=== PATIENT | male | born 1980 | race African-American/Black ===

== ENCOUNTER 2020-08-17 22:11 | Emergency (ER) | payer BC ==
[~2020-08-17] VITALS: Ht 180.3 cm; Wt 72.7 kg
[2020-08-17 22:20] VITALS: BP 125/73
--- NOTE | 2020-08-17 23:06 | RAD ---
EXAM: FOOT RIGHT 3V 08/17/2020 10:13 PM CLINICAL INDICATION:Right great toe pain after injury COMPARISON:None TECHNIQUE:3 views of the right foot FINDINGS:There is an oblique, nondisplaced fracture of the base of the great toe distal phalanx, extending to the articular surface. No other fracture or marrow edema. Mild soft tissue swelling of the great toe. IMPRESSION:Nondisplaced intra-articular fracture of the great toe distal phalanx. Electronically signed by: Indy Allen MD (08/17/2020 11:03 PM) [id number]
--- NOTE | 2020-08-17 23:22 | PHYS DOC ---
Past Medical History Past Medical History: No Pertinent History Past Surgical History: No Surgical History Smoking Status: Never Smoker Alcohol Use: Occasionally General Adult EDM: Chief Complaint: TOE PROBLEM HPI: HPI: Patient is a 40 year old AA male who presents emergency department with complaints of right great toe pain, bruising, and swelling that began today. Patient denies any known injury. He is not sure if he possibly dropped something on his toe or maybe stubbed his toe while working today. He denies any numbness, tingling, weakness, or difficulty with ambulation. He currently rates his pain a 10 out of 10 on the pain scale, he denies radiation of the pain, he denies any alleviating factors. The patient states he has not tried any Tylenol or ibuprofen prior to arrival. Review of Systems: Review of Systems: Complete ROS is negative unless otherwise stated in the HPI. Heart Score: Risk Factors: Risk Factors: DM, Current or recent (<one month) smoker, HTN, HLP, family history of CAD, obesity. Risk Scores: Score 0 - 3: 2.5% MACE over next 6 weeks - Discharge Home Score 4 - 6: 20.3% MACE over next 6 weeks - Admit for Clinical Observation Score 7 - 10: 72.7% MACE over next 6 weeks - Early Invasive Strategies Physical Exam: PE: Constitutional: Well developed, well nourished, no acute distress, non-toxic appearance. [] HENT: Normocephalic, atraumatic, bilateral external ears normal, nose normal. [] Eyes: PERRLA, EOMI, conjunctiva normal, no discharge. [] Neck: Normal range of motion, no stridor. [] Cardiovascular:Heart rate regular rhythm Lungs & Thorax: Respirations even and unlabored, no retractions, no respiratory distress Skin: Warm, dry, no erythema, no rash. [] Extremities: Right great toe: Tenderness to palpation over the DIP at the lateral aspect with bruising and swelling over the DIP, no cyanosis, ROM intact Neurologic: Alert and oriented X 3, no focal deficits noted. [] Psychologic: Affect normal, judgement normal, mood normal. [] Current Patient Data: Vital Signs: Vital Signs Date Time Temp Pulse Resp B/P (MAP) Pulse Ox O2 Delivery O2 Flow Rate FiO2 20 22:20 98.2 83 14 125/73 (90) 99 Room Air 98.2 EKG: EKG: [] Radiology/Procedures: Radiology/Procedures: PROCEDURE: FOOT RIGHT 3V EXAM: FOOT RIGHT 3V 08/17/2020 10:13 PM CLINICAL INDICATION:Right great toe pain after injury COMPARISON:None TECHNIQUE:3 views of the right foot FINDINGS:There is an oblique, nondisplaced fracture of the base of the great toe distal phalanx, extending to the articular surface. No other fracture or marrow edema. Mild soft tissue swelling of the great toe. IMPRESSION:Nondisplaced intra-articular fracture of the great toe distal phalanx.[] Course & Med Decision Making: Course & Med Decision Making Pertinent Labs and Imaging studies reviewed. (See chart for details) [] Dragon Disclaimer: Dragon Disclaimer: This electronic medical record was generated, in whole or in part, using a voice recognition dictation system. Departure Departure Impression: Primary Impression: Fracture of great toe of right foot with routine healing Qualified Codes: S92.424D - Nondisplaced fracture of distal phalanx of right great toe, subsequent encounter for fracture with routine healing Disposition: 01 HOME, SELF-CARE Condition: STABLE Referrals: NO PCP (PCP) YVONNE VAZQUEZ II, MD Patient Instructions: Demetra Taping of Toes, Toe Fracture-Brief Additional Instructions: You can take Tylenol as needed for pain. Recommend demetra taping your toes and wearing the postop shoe. Activity as tolerated. Follow-up with Dr. Vazquez in 1 to 2 days, return to the ER if symptoms worsen. Justicifation of Admission Dx: Justifications for Admission: Justification of Admission Dx: N/A J[facility]ON ELIZABETH [employer]ER Aug 17, 2020 23:22
== END 2020-08-17 23:25 | disposition home or self-care (01) ==
LOC: ER 22:11
DX: S92.424D Nondisplaced fracture of distal phalanx of right great toe, subsequent encounter for fracture with routine healing (principal); X58.XXXD Exposure to other specified factors, subsequent encounter
CPT/HCPCS: 73630; 99283

== ENCOUNTER 2022-02-19 07:21 | Emergency (ER) | payer BC ==
[~2022-02-19] VITALS: Ht 180.3 cm; Wt 72.9 kg
[2022-02-19] MEDS ORDERED: IV NORMAL SALINE 1000ML BAG 1,000 ML IV SCH (07:45)
[2022-02-19] MEDS ORDERED: KETOROLAC 30 MG/ML VIAL. IVP ONE (07:45)
--- NOTE | 2022-02-19 07:46 | PHYS DOC ---
Past Medical History Past Medical History: No Pertinent History Past Surgical History: No Surgical History Smoking Status: Never Smoker Alcohol Use: Occasionally General Adult EDM: Chief Complaint: FLANK PAIN HPI: HPI: Patient is a 41 year old comes in with right flank pain that started 10 PM last night. Patient states that the pain radiates all the way down to his right testicle. Denies any dysuria denies any hematuria. States that he has not had pain like this before in the past. Patient does not have any significant medical history does not take any medications. Patient reports nausea no vomiting. Review of Systems: Review of Systems: Constitutional: Denies fever or chills. Eyes: Denies change in visual acuity. HENT: Denies nasal congestion or sore throat. Respiratory: Denies cough or shortness of breath. Cardiovascular: Denies chest pain or edema. GI: Denies abdominal pain, nausea, vomiting, bloody stools or diarrhea. : Right flank pain denies dysuria. Musculoskeletal: Denies back pain or joint pain. Integument: Denies rash. Neurologic: Denies headache, focal weakness or sensory changes. Endocrine: Denies polyuria or polydipsia. Lymphatic: Denies swollen glands. Psychiatric: Denies depression or anxiety. Heart Score: C/O Chest Pain: No Risk Factors: Risk Factors: DM, Current or recent (<one month) smoker, HTN, HLP, family history of CAD, obesity. Risk Scores: Score 0 - 3: 2.5% MACE over next 6 weeks - Discharge Home Score 4 - 6: 20.3% MACE over next 6 weeks - Admit for Clinical Observation Score 7 - 10: 72.7% MACE over next 6 weeks - Early Invasive Strategies Current Medications: Current Medications Medications (Trade) Dose Ordered Sig/Michelle Start Time Stop Time Status Last Admin Dose Admin Ketorolac Tromethamine (Toradol 30mg Vial) 15 mg 1X ONCE 02/19/22 07:45 02/19/22 07:46 Sodium Chloride 1,000 ml @ 1,000 mls/hr Q1H 02/19/22 07:45 02/19/22 08:44 Allergies: Allergies: Allergies Coded Allergies Type Severity Reaction Last Updated Verified No Known Drug Allergies 08/17/20 No Physical Exam: PE: Constitutional: Appears uncomfortable well developed, well nourished, no acute distress, non-toxic appearance. HENT: Normocephalic, atraumatic, bilateral external ears normal, oropharynx moist, no oral exudates, nose normal. Eyes: PERRLA, EOMI, conjunctiva normal, no discharge. Neck: Normal range of motion, no tenderness, supple, no stridor. Cardiovascular:Heart rate regular rhythm, no murmur Lungs & Thorax: Bilateral breath sounds clear to auscultation Abdomen: Bowel sounds normal, soft, no tenderness, no masses, no pulsatile masses. Skin: Warm, dry, no erythema, no rash. Back: Scoliosis with convexity towards the right., RIght CVA tenderness. Extremities: No tenderness, no cyanosis, no clubbing, ROM intact, no edema. Neurologic: Alert and oriented X 3, normal motor function, normal sensory function, no focal deficits noted. Psychologic: Affect normal, judgement normal, mood normal. Current Patient Data: Vital Signs: Vital Signs Date Time Temp Pulse Resp B/P (MAP) Pulse Ox O2 Delivery O2 Flow Rate FiO2 02/19/22 07:22 98.3 51 24 124/79 (94) 99 Room Air 98.3 EKG: EKG: [] Radiology/Procedures: Radiology/Procedures: [] Course & Med Decision Making: Course & Med Decision Making Pertinent Labs and Imaging studies reviewed. (See chart for details) Upon reevaluation patient is resting comfortably. Patient is sleeping Dragon Disclaimer: David Disclaimer: This electronic medical record was generated, in whole or in part, using a voice recognition dictation system. Departure Departure Referrals: NO PCP (PCP) DELTA LIRIANO DO Feb 19, 2022 07:46
[2022-02-19 08:30] LABS: BASO % 1 % (0-3); EOS # 0.1 x10^3/uL (0.0-0.7); EOS % 1 % (0-3); HEMATOCRIT 41.2 % (39.0-53.0); HEMOGLOBIN 13.5 g/dL (13.0-17.5); LYMPH # 1.2 x10^3/uL (1.0-4.8); LYMPH % 13 % (24-48); MEAN CORPUSCULAR HEMOGLOBIN 26 pg (25-35); MEAN CORPUSCULAR HGB CONC 33 g/dL (31-37); MEAN CORPUSCULAR VOLUME 80 fL (79-100); MONO # 0.8 x10^3/uL (0.0-1.1); MONO % 8 % (0-9); NEUT # 7.3 x10^3/uL (1.8-7.7); NEUT % 78 % (31-73); PLATELET COUNT 189 x10^3/uL (140-400); RED BLOOD COUNT 5.17 x10^6/uL (4.30-5.70); RED CELL DISTRIBUTION WIDTH 13.8 % (11.5-14.5); WHITE BLOOD COUNT 9.4 x10^3/uL (4.0-11.0)
[2022-02-19 08:36] LABS: CALCIUM 8.9 mg/dL (8.5-10.1); GFR 99.6; POTASSIUM 4.1 mmol/L (3.5-5.1)
[2022-02-19 08:42] LABS: ALBUMIN 3.9 g/dL (3.4-5.0); TOTAL BILIRUBIN 0.3 mg/dL (0.2-1.0); TOTAL PROTEIN 7.8 g/dL (6.4-8.2)
[2022-02-19 09:01] LABS: BACTERIA,URINE 0 /HPF (0-FEW); RBC,URINE 0 /HPF (0-2); WBC,URINE 0 /HPF (0-4)
--- NOTE | 2022-02-19 10:03 | RAD ---
Exam Date: 02/19/2022 7:[address] ABDOMEN+PELVIS WO Indication: Reason: Right flank pain / Spl. Instructions: / History: . TECHNIQUE: CT examination of the abdomen and pelvis was performed without oral or intravenous contra st. One or more of the following dose reduction techniques were utilized: *Automated exposure control (AEC) *Adjustment of mA and/or kV according to patient size *Use of iterative reconstruction technique *CT scan done according to ALARA, or ALARA/IMAGE GENTLY FINDINGS: The visualized lung bases demonstrate mild subsegmental atelectasis and/or scarring. Calcified granulomas in the spleen. The liver, gallbladder, spleen, pancreas, and adrenal glands are otherwise normal. The kidneys are normal bilaterally. No hydronephrosis or hydroureter is seen. No urinary tract calc federica are seen. Urinary bladder is normal in appearance. There is no bowel obstruction or inflammation. The appendix is normal. No significant atherosclerotic calcifications are seen. No lymphadenopathy is seen. Small free flui d in the pelvis is nonspecific, likely physiologic. Degenerative changes are seen in the spine. IMPRESSION: Normal appearance of the kidneys and bladder. No hydronephrosis or hydroureter. No urinary tract ca lculi. Electronically signed by: Nicolás Jason MD (02/19/2022 10:01 AM) [facility]
[2022-02-19] MEDS ORDERED: CYCL5TAB PO (10:42)
[2022-02-19] MEDS ORDERED: IBUP-1007 PO (10:43)
[2022-02-19 10:57] VITALS: BP 112/69
== END 2022-02-19 10:59 | disposition home or self-care (01) ==
LOC: ER 07:21
DX: R10.31 Right lower quadrant pain (principal); N50.811 Right testicular pain; R11.2 Nausea with vomiting, unspecified; R06.02 Shortness of breath
CPT/HCPCS: 36415; 74176; 80053; 81001; 85025; 96361; 96374; 99285; J1885; J7030